=== PATIENT | female | born 1960 | race Caucasian/White ===

== ENCOUNTER 2019-10-27 19:10 | Outpatient (CLI) | payer MEDICAID | END 2019-10-27 19:11 | disposition home or self-care (01) | LOC: COV 19:10 | PROVIDERS: ATTEND Family Medicine | DX: R50.9 Fever, unspecified (principal); R06.02 Shortness of breath | CPT/HCPCS: 81599 ==

== ENCOUNTER 2020-09-27 18:22 | Emergency (ER) | payer MEDICAID ==
[2020-09-27 18:47] VITALS: BP 163/100
[2020-09-27 19:07] LABS: BILIRUBIN,URINE NEGATIVE (NEGATIVE); GLUCOSE, URINE (UA) NEGATIVE (NEGATIVE); KETONES,URINE (UA) NEGATIVE (NEGATIVE); LEUKOCYTE ESTERASE, URINE TRACE (NEGATIVE); NITRITE,URINE NEGATIVE (NEGATIVE); OCCULT BLOOD,URINE SMALL (NEGATIVE); PH,URINE 6.5 PH (5.0-7.5); PROTEIN,URINE NEGATIVE (NEGATIVE); UROBILINOGEN,URINE 0.2 (NORMAL) E.U./dL (NORMAL)
[2020-09-27 19:09] LABS: CLARITY,URINE HAZY (CLEAR); HCG UR QUAL NEGATIVE
[2020-09-27 19:27] LABS: BACTERIA,URINE Many /HPF (None Seen); EPITHELIAL CELLS,UR RARE Transitional /HPF (<= Few); RBC,URINE 0-5 /HPF (0-5); SQUAMOUS EPITHELIAL CELL,UR FEW Squamous (<= Few); WBC CLUMPS,URINE PRESENT
[2020-09-27] MEDS ORDERED: FOSFOMYCIN TROMETHAMINE 3 GM PACKET PO STA (19:37)
--- NOTE | 2020-09-27 19:37 | ED Physician Documentation ---
History of Present Illness - Stated complaint Stated Complaint: FEMALE - Chief complaint Chief Complaint: Abd Pain - Additonal information Additional information: [id number] presents to the emergency department with 2 days of burning with urination suprapubic discomfort and low back pain. She has had no fevers flank pain CVA tenderness or vomiting. She does report to me that last year when in [facility] she had to have an emergent spinal fusion. Unfortunately she did develop a urinary tract infection infection secondary to repeated catheterizations. It ultimately grew a resistant Klebsiella that was only sensitive to fosfomycin. She is concerned that she may have a return of this infection. Denies any history of diabetes or hypertension but does endorse whitecoat syndrome. Otherwise appears very well. Review of Systems Constitutional: denies: Fever, Chills Eyes: reports: Reviewed and negative Ears: reports: Reviewed and negative Nose: reports: Reviewed and negative Throat: reports: Reviewed and negative Cardiac: reports: Reviewed and negative Respiratory: reports: Reviewed and negative GI: reports: Abdominal Pain. denies: Nausea, Vomiting : reports: Dysuria. denies: Hesitancy, Unable to Void, Incontinent, Hematuria Skin: reports: Reviewed and negative Musculoskeletal: reports: Reviewed and negative PD PAST MEDICAL HISTORY - Present Medications Home Medications: Ambulatory Orders Medication Instructions Recorded Confirmed Fosfomycin Tromethamine 3 gm PO DAILY #1 packet 09/27/20 - Allergies Allergies/Adverse Reactions: Allergies Allergy/AdvReac Type Severity Reaction Status Date / Time adhesive tape Allergy Hives Verified 09/27/20 18:48 amoxicillin [From Augmentin] Allergy Unknown Verified 09/27/20 18:47 ciprofloxacin [From Cipro] Allergy Unknown Verified 09/27/20 18:47 clavulanic acid Allergy Unknown Verified 09/27/20 18:47 [From Augmentin] naproxen Allergy Unknown Verified 09/27/20 18:48 PD ED PE NORMAL - General General: Alert and oriented X 3, No acute distress - Neck Neck: No adenopathy - Cardiac Cardiac: RRR, No murmur - Respiratory Respiratory: No respiratory distress, Clear bilaterally - Abdomen Abdomen: Normal bowel sounds, Soft. No: Non tender (Mild suprapubic tenderness. No CVA or flank pain discomfort.) - Back Back: No CVA TTP, No spinal TTP - Derm Derm: Normal color - Extremities Extremities: No deformity, No tenderness to palpate, Normal ROM s pain Results - Vitals Vitals: Vital Signs - 24 hr 09/27/20 18:39 Temperature 36.6 C Heart Rate 70 Respiratory 14 Rate Blood Pressure 163/100 H O2 Saturation 98 Oxygen O2 Source Room air - Labs Labs: Laboratory Tests 09/27/20 18:52 Urine Color LIGHT YELLOW Urine Clarity HAZY Urine pH 6.5 Ur Specific [place] <=1.005 Urine Protein NEGATIVE Urine Glucose (UA) NEGATIVE Urine Ketones NEGATIVE Urine Occult Blood SMALL H Urine Nitrite NEGATIVE Urine Bilirubin NEGATIVE Urine Urobilinogen 0.2 (NORMAL) Ur Leukocyte Esterase TRACE H Ur Microscopic Review INDICATED Urine Culture Comments Not Reportable Urine HCG, Qual NEGATIVE PD MEDICAL DECISION MAKING - ED course Complexity details: reviewed results, re-evaluated patient, d/w patient ED course: 60-year-old female presents to the emergency department with 24 hours of urinary symptoms. 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 Unfortunately she reports that the previous infections have only been sensitive to fosfomycin. Urine today is consistent with an infection. Given lack of fevers flank pain CVA tenderness or vomiting my suspicion for pyelonephritis is low. Patient will be given 3 g of fosfomycin here in the emergency department. I will write a prescription for 3 g of fosfomycin to be taken again in 1 week. However I suspect that she may have difficulty filling fosfomycin as an outpatient. Therefore if she is unable to fill that she will return to the emergency department. Cultures on this urine today are pending. Departure - Departure Disposition: 01 Home, Self Care Clinical Impression: Cystitis, History of ESBL Klebsiella pneumoniae infection Condition: Stable Record reviewed to determine appropriate education?: Yes Follow-Up: Timmy Jameson MD [Credentialed Staff Provider] - Prescriptions: Fosfomycin Tromethamine 3 gm PO DAILY #1 packet Comments: Your urine today is consistent with infection. We are obtaining a culture on it and will notify you if it grows a bacteria not sensitive to the fosfomycin. Fosfomycin is a long-acting antibiotic. We are giving you your first dose of medication here in the emergency department. I am writing a prescription for an additional 3 g that I would like you to fill and take in 1 week. However as we discussed I suspect she will have a difficult time filling this as an outpatient. If you do I would like you to return to the emergency department where a second dose can be given in 7 days time. Return immediately to the ER if you are having worsening symptoms, fevers flank pain uncontrolled vomiting or any concerns of kidney infection
--- NOTE | 2020-09-29 13:44 | ED Physician Documentation ---
ED Addendum - Addendum Addendum: 09/29/20 13:39 Pt initially prexented 09/27/20 for urinary symptoms. Reported a hx of resistant Klebsiella after recurrent caths after spinal surgery in [facility] last year. Reported the klebsiella was at that time sensitive only to Fosfomycin. Pt was given an initial treatment of 3 gm fosfomycin during the ED visit 09/27/20. Plan was to f/u cx and sensitivities. Cx yields a agrawal sensitive e-coli. Initial 3 gm of fosfamycin should be adequate tx for this infection. I attempted to call pt to discuss results at the listed phone number. No answer. IF she returns call, this should be the message relayed.
== END 2020-09-27 19:54 | disposition home or self-care (01) ==
LOC: ED 18:22
DX: N30.00 Acute cystitis without hematuria (principal); Z87.440 Personal history of urinary (tract) infections; Z16.12 Extended spectrum beta lactamase (ESBL) resistance
CPT/HCPCS: 81001; 81025; 87086; 87181; 99283; 99284; J8499; 81003

== ENCOUNTER 2020-10-18 16:20 | Outpatient (CLI) | payer MEDICAID ==
[2020-10-18 20:26] LABS: BILIRUBIN,URINE NEGATIVE (NEGATIVE); GLUCOSE, URINE (UA) NEGATIVE (NEGATIVE); KETONES,URINE (UA) NEGATIVE (NEGATIVE); LEUKOCYTE ESTERASE, URINE NEGATIVE (NEGATIVE); NITRITE,URINE NEGATIVE (NEGATIVE); OCCULT BLOOD,URINE TRACE-INTA (NEGATIVE); PROTEIN,URINE NEGATIVE (NEGATIVE); UROBILINOGEN,URINE 0.2 (NORMAL) E.U./dL (NORMAL)
[2020-10-18 20:35] LABS: BACTERIA,URINE None Seen /HPF (None Seen); CLARITY,URINE CLEAR (CLEAR); RBC,URINE 0-5 /HPF (0-5); SQUAMOUS EPITHELIAL CELL,UR NONE SEEN (<= Few); WBC,URINE 0-3 /HPF (0-5)
== END 2020-10-18 16:21 | disposition home or self-care (01) ==
LOC: LAB.S 16:20
PROVIDERS: ATTEND Internal Medicine
DX: R30.0 Dysuria (principal)
CPT/HCPCS: 81001; 87086